=== PATIENT | male | born 2000 | race Caucasian/White ===

== ENCOUNTER 2024-02-11 21:26 | Inpatient (IN) ==
[2024-02-11 22:02] LABS: Appearance Urine Clear (Clear); Bacteria Urine Automated Negative (Negative); Bilirubin Urine Negative (Negative); Blood Urine 3+ (Negative); Cast Urine Automated 0 /lpf (0-5); Color Urine Yellow; Epithelial Cell Urine Auto 0-5 /lpf (0-5); Glucose Urine UA Negative (Negative); Ketones Urine Negative (Negative); Leukocyte Esterase Urine Negative (Negative); Nitrite Urine Negative (Negative); Protein Urine 1+ (Negative); RBC Urine Automated 0-4 /hpf (0-4); Specific Gravity Urine 1.006 (1.000-1.030); Urobilinogen Urine Negative (Negative)
[2024-02-11] MEDS: SODIUM CHLORIDE 0.9% 1,000 ML IV ONE (23:19)
[2024-02-11 23:41] LABS: Basophils # (auto) 0.07 K/uL (0.00-0.20); Basophils % (auto) 0.6 %; Eosinophils # (auto) 0.15 K/uL (0.00-0.50); Eosinophils % (auto) 1.4 %; Hematocrit (blood only) 48.6 % (42.0-52.0); Immature Granulocytes # (auto) 0.03 K/uL (0.01-0.20); Immature Granulocytes % (auto) 0.3 %; Lymphocytes % (auto) 25.4 %; Mean Corpuscular Hemoglobin 29.5 pg (25.0-34.0); Mean Corpuscular Volume 84.4 fL (80.0-100.0); Mean Platelet Volume 10.2 fL (9.4-12.4); Monocytes # (auto) 0.68 K/uL (0.11-0.59); Monocytes % (auto) 6.2 %; Neutrophils # (auto) 7.31 K/uL (1.40-6.50); Neutrophils % (auto) 66.1 %; Platelet Count 209 K/uL (130-400); RDW Coefficient of Variation 12.3 % (11.5-14.5); RDW Standard Deviation 37.5 fL (36.4-46.3); Red Blood Count 5.76 M/uL (4.70-6.10); White Blood Count 11.04 K/ul (4.8-10.8)
--- NOTE | 2024-02-12 | Emergency Department Note ---
Impression & Plan Exertional rhabdomyolysis, Acute dehydration ED Provider Note Name: RACQUEL TEMPLE Age: 23 Sex: Male Arrives Via: Walk-In Informant: Patient ED Provider: Amanuel Herrera MD Chief Complaint: Muscle aches Impression: As per impressions above Medical Decision Making: Pleasant 23-year-old male arrives for evaluation of generalized muscle aches across upper chest and shoulders and now having dark urine. Laboratory workup remarkable for an elevated CK of 71,000. Of note it took quite some time for this level to return given the need for dilution. Fortunately the rest of his labs are unremarkable. He is not in any renal failure. Urinalysis is + blood without RBCs. He was given 2 L normal saline bolus IV and given the severe degree of rhabdo he is in he requires hospitalization. No history of this happening previously. No significant other dehydrational issues going on. Denies any familial history of similar symptoms. Triage/Nursing Notes reviewed by Me Differential:Rhabdomyolysis, electrolyte imbalance, muscle strain, UTI, hematuria, anemia, bleeding dyscrasia amongst many other pathologies considered Vital Signs: reviewed and remarkable for no significant abnormalities Interventions: Normal Saline bolus 2 L IV Labs:ED labs Reviewed by me and remarkable for CK 71,000 Consults:Dr. Lux the [facility] hospitalist service Plan: Disposition:Hospitalization. Condition: Good History of Present Illness: 23-year-old male arrives for evaluation of muscle aches. Patient notes he was exercising pretty vigorously on Sunday with a friend. They have been doing upper body and arm workout. Notes some muscle soreness throughout the day yesterday though severe today. Associated with dark urine. Feeling bit dehydrated. Denies any fevers, chills, shortness of breath, back pain, abdominal pain, leg swelling, syncope, lightheadedness or other concerning signs or symptoms. Denies previous issues with working out. Takes no daily medications. Did take some Tylenol at home today with some mild improvement. Denies any urinary burning or frequency. Past Medical History:No significant past medical history Home Medications:No daily medications Allergies:Amoxicillin, aspirin, ibuprofen, penicillins Vitals:Blood Pressure: 137/93, Pulse 98, RR 18, T 36.8C, O2 99% on RA Physical Exam: GENERAL: Patient is mildly dehydrated appearing and in no acute distress. RESPIRATORY: No dyspnea. Clear to auscultation and equal bilaterally. CHEST: Mild ttp over bilateral pectoral muscles CARDIOVASCULAR: Regular rate and rhythm.No murmur appreciated. GASTROINTESTINAL: Abdomen soft, non-tender, no peritonitis. BACK: No midline tenderness, no CVA tenderness EXTREMITIES: Normal motion all extremities, no cyanosis, no edema. NEUROLOGIC: Alert and oriented. No focal neurologic deficits appreciated SKIN: No rash, no jaundice, no diaphoresis. PSYCH: Appropriate GCS: 15 ED Course: Times/Reassessments: Patient stable throughout. Agreeable to hospitalization. Breathing comfortably at time of hospitalization. Amanuel Herrera MD Past Med/Surg History Social History Smoking Status: Never smoker Preferred Language: [place] Feels Safe at Home: Yes Allergies Allergies Allergy/AdvReac Type Severity Reaction Status Date / Time amoxicillin Allergy Intermediate PT THINKS Verified 02/12/24 01:30 WAS A RASH ibuprofen Allergy Intermediate Swelling Verified 02/12/24 01:30 of the Eye aspirin Allergy Unknown STRONG Verified 02/12/24 01:30 FAMILY HX OF ALLERGY Penicillins Allergy Unknown HAPPENED Verified 02/12/24 01:30 A SMALL CHILD Home Meds Home Medications Medication Instructions Recorded Confirmed acetaminophen 500 mg tablet 1,000 mg PO DIRECTED PRN 02/12/24 02/12/24 (Tylenol Extra Strength) PAIN/FEVER Results & Data (ED) Vital Signs Vital Signs - 24 hr 02/11/24 21:43 02/12/24 01:40 02/12/24 01:41 Temperature 36.8 C Temperature Source Temporal Artery Scan Pulse Rate 98 H 82 Pulse Rate [Apical] 84 Respiratory Rate 18 18 Respiratory Effort / Characteristics Non-Labored Respiratory Depth Normal Respiratory Pattern Regular Blood Pressure 208/109 H Blood Pressure [Left Arm] 137/93 Blood Pressure Mean 142 Blood Pressure Mean [Left Arm] 107 Pulse Oximetry 99 Oxygen Delivery Method Room Air Sepsis Recent Fever Within 48 Hours No Sepsis New/Unexplained Change in Mental Status No Sepsis Action Taken by Nursing No Action Required Laboratory Data 02/11/24 23:22 02/11/24 23:22 Lab Results 02/11/24 02/11/24 Range/Units 21:50 23:22 WBC 11.04 H (4.8-10.8) K/ul RBC 5.76 (4.70-6.10) M/uL Hgb 17.0 (14.0-18.0) g/dl Hct 48.6 (42.0-52.0) % MCV 84.4 (80.0-100.0) fL MCH 29.5 (25.0-34.0) pg MCHC 35.0 (32.0-36.0) g/dL RDW Std Deviation 37.5 (36.4-46.3) fL RDW Coeff of Nuvia 12.3 (11.5-14.5) % Plt Count 209 (130-400) K/uL MPV 10.2 (9.4-12.4) fL Immature Gran % (Auto) 0.3 % Neut % (Auto) 66.1 % Lymph % (Auto) 25.4 % [place] % (Auto) 6.2 % Eos % (Auto) 1.4 % Baso % (Auto) 0.6 % Neut # (Auto) 7.31 H (1.40-6.50) K/uL Lymph # (Auto) 2.80 (1.20-3.40) K/uL [place] # (Auto) 0.68 H (0.11-0.59) K/uL Eos # (Auto) 0.15 (0.00-0.50) K/uL Baso # (Auto) 0.07 (0.00-0.20) K/uL Immature Gran # (Auto) 0.03 (0.01-0.20) K/uL Sodium 139 (136-145) mmol/L Potassium 3.7 (3.5-5.1) mmol/L Chloride 104 (98-107) mmol/L Carbon Dioxide 29 (21-32) mmol/L Anion Gap 6 (3-11) BUN 11 (6-23) mg/dl Creatinine 1.04 (0.6-1.4) mg/dl Est Cr Clr Drug Dosing 101.4 ml/min Est GFR ( Amer) 118.4 ml/min Est GFR (Non-Af Amer) 102.2 ml/min BUN/Creatinine Ratio 10.6 (10-20) Glucose 92 (70-99(Fasting)) mg/dl Calcium 9.8 (8.6-10.3) mg/dl Total Bilirubin 0.7 (0.2-1.0) mg/dl AST 761 H (13-39) U/L ALT 184 H (7-52) U/L Alkaline Phosphatase 59 (34-104) U/L Total Creatine Kinase 40248 H (30-223) U/L Total Protein 7.5 (6.0-8.3) gm/dl Albumin 4.8 (3.4-5.0) gm/dl Globulin 2.7 (2.5-4.0) gm/dl Albumin/Globulin Ratio 1.8 (0.9-2) Urine Color Yellow Urine Appearance Clear (Clear) Urine pH 6.0 (4.5-7.5) Ur Specific [place] 1.006 (1.000-1.030) Urine Protein 1+ H (Negative) Urine Glucose (UA) Negative (Negative) Urine Ketones Negative (Negative) Urine Blood 3+ H (Negative) Urine Nitrite Negative (Negative) Urine Bilirubin Negative (Negative) Urine Urobilinogen Negative (Negative) Ur Leukocyte Esterase Negative (Negative) Urine WBC (Auto) 1-5 (0-5) /hpf Urine RBC (Auto) 0-4 (0-4) /hpf U Hyaline Cast (Auto) 0 (0-5) /lpf U Epithel Cells (Auto) 0-5 (0-5) /lpf Urine Bacteria (Auto) Negative (Negative) Administered Medications Discontinued Medications Sodium Chloride (Nss) 1,000 mls @ 999 mls/hr IV .Q1H1M ONE Stop: 02/11/24 22:49 Last Infusion: 02/12/24 01:37 Dose: Infused Documented By: Admin: 02/11/24 23:19 Dose: 999 mls/hr Documented By: DIGNA Sodium Chloride (Nss) 1,000 mls @ 999 mls/hr IV .Q1H1M ONE Stop: 02/12/24 02:03 Last Infusion: 02/12/24 02:41 Dose: Infused Documented By: Admin: 02/12/24 01:36 Dose: 999 mls/hr Documented By: MARINO Discharge Plan Visit Data Chief Complaint: Dehydration Stated Complaint: DARK URINE, MUSCLE SORENESS ED Provider: Amanuel Herrera Discharge Problem: Exertional rhabdomyolysis, Acute dehydration Forms Stand Alone Forms: [facility] Prescriptions Prescriptions: No Action acetaminophen [Tylenol Extra Strength] 500 mg Tablet 1,000 mg PO DIRECTED PRN (Reason: PAIN/FEVER) Referrals Referrals: PCP,NO [Physician] -
[2024-02-12 00:01] LABS: BUN Creatinine Ratio 10.6 (10-20); Calcium 9.8 mg/dl (8.6-10.3); Creatinine Clr Calc Pharmacy 101.4 ml/min; Est GFR (African American) 118.4 ml/min; Est GFR (Non-African American) 102.2 ml/min; Potassium 3.7 mmol/L (3.5-5.1)
[2024-02-12 01:08] LABS: Albumin Globulin Ratio 1.8 (0.9-2); Albumin Level 4.8 gm/dl (3.4-5.0); Bilirubin,Total 0.7 mg/dl (0.2-1.0); Globulin 2.7 gm/dl (2.5-4.0); Total Protein 7.5 gm/dl (6.0-8.3)
[2024-02-12] MEDS: SODIUM CHLORIDE 0.9% 1,000 ML IV ONE (01:36)
[2024-02-12] MEDS ORDERED: ONDANSETRON INJ 2 MG/ML 2 ML VIAL IV PRN (03:46)
[2024-02-12] MEDS: SODIUM CHLORIDE 0.9% 1,000 ML IV STA (03:54)
--- NOTE | 2024-02-12 04:31 | History & Physical Report ---
Date of Service February 12, 2024 Assessment & Plan (1) Exertional rhabdomyolysis: (2) Abnormal LFTs: (3) Acute dehydration: (4) Myalgia: Plan Acute rhabdomyolysis due to exertion- CK 71,100 Primary symptoms are that of generalized muscle aches that began shortly after significantly more exertional activity than usual Follow renal function panel and CK every morning Status post 2 L normal saline fluid bolus Add and liter normal saline bolus, followed by NSS + KCl 20 mill equivalents at 150 mL/h x 1 additional liter Abnormal LFTs- AST 761, ALT 184 Likely associated with rhabdomyolysis syndrome Follow serially If not significantly improving, would add a hepatitis profile Admission and Anticipated Discharge Date Admission Date: February 12, 2024 History of Present Illness Chief Complaint: The patient presents to the emergency department with complaint of generalized muscle aching and soreness since a workout a few days ago, which she reports not having had them for quite a while previous to that Primary Care Provider: [facility] The patient is a 23-year-old male with no significant past medical history, who decided to work out for the first time in a long while with a friend of his couple days ago. He reports that his muscles have been very sore since that time, and noted yesterday that his urine became dark and had decreased urine volume. He denies taking any supplements of any kind, including creatin Allergies Allergy/AdvReac Type Severity Reaction Status Date / Time amoxicillin Allergy Intermediate PT THINKS Verified 02/12/24 01:30 WAS A RASH ibuprofen Allergy Intermediate Swelling Verified 02/12/24 01:30 of the Eye aspirin Allergy Unknown STRONG Verified 02/12/24 01:30 FAMILY HX OF ALLERGY Penicillins Allergy Unknown HAPPENED Verified 02/12/24 01:30 A SMALL CHILD Home Medications Medication Instructions Recorded Confirmed Type acetaminophen 500 mg tablet 1,000 mg PO DIRECTED PRN 02/12/24 02/12/24 History (Tylenol Extra Strength) PAIN/FEVER Past Med/Surg History Social History Smoking Status: Never smoker Hx Alcohol Use: Yes Alcohol type: beer Hx Substance Use: No Preferred Language: Citizen Of [place] Communication Ability: Effective 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 Beliefs That Will Affect Care: None Current Living Situation: Other Feels Safe at Home: Yes Safety Concerns: Feels Safe At This Time Assistive Devices: None Review of Systems Review of Systems: The patient denies chest pain, palpitations, shortness of breath, dyspnea on exertion, cough, lower extremity swelling, sore throat, fevers, chills, sweats, weight change, fatigue, nausea, vomiting, diarrhea , constipation, abdominal pain, pelvic pain, blood in stool, lightheadedness, dizziness, headache, memory loss, loss of consciousness, rash, abnormal bruising or bleeding, imbalance, focal or generalized weakness, numbness or tingling in arms or legs, back or neck pain, or night sweats. The review of systems is otherwise negative other than for that already noted above, and at least 10 systems have been reviewed. Physical Exam Physical Exam: The patient is awake, alert and oriented 3, well developed and well nourished, normocephalic and atraumatic, lying in bed and in no acute distress. HEENT--PERRL, EOMI, mucous membranes and oropharynx dry. Neck--supple. No JVD. No bruits. Thyroid normal, trachea midline, no adenopathy. Heart--normal S1 and S2. No murmurs, rubs or gallops. Lungs--clear bilaterally, no respiratory distress, no accessory muscle use. Abdomen--normal bowel sounds and soft. Nontender. Nondistended, no hernias or masses, no organomegaly. Extremities--no cyanosis or clubbing. No edema. There are good distal pulses b/l. Dermatologic--normal skin turgor, normal color, no abnormal lymph nodes, no rash. Neurologic--cranial nerves II through XII grossly intact. Rheumatologic--normal range of motion. Psychiatric--normal affect. Results & Data Results & Data Vital Signs (Past 12 Hours) Vital Signs Temp Pulse Pulse Resp BP BP Pulse Ox 02/12/24 03:57 147/83 H 02/12/24 01:41 82 02/12/24 01:40 84 18 137/93 02/11/24 21:43 36.8 C 98 H 18 208/109 H 99 O2 Del Method 02/12/24 03:57 02/12/24 01:41 02/12/24 01:40 02/11/24 21:43 Room Air Laboratory Results Laboratory Results WBC 11.04 K/ul (4.8-10.8) H 02/11/24 23:22 RBC 5.76 M/uL (4.70-6.10) 02/11/24 23:22 Hgb 17.0 g/dl (14.0-18.0) 02/11/24 23:22 Hct 48.6 % (42.0-52.0) 02/11/24 23:22 MCV 84.4 fL (80.0-100.0) 02/11/24 23:22 MCH 29.5 pg (25.0-34.0) 02/11/24 23:22 MCHC 35.0 g/dL (32.0-36.0) 02/11/24 23:22 RDW Std Deviation 37.5 fL (36.4-46.3) 02/11/24 23:22 RDW Coeff of Nuvia 12.3 % (11.5-14.5) 02/11/24 23:22 Plt Count 209 K/uL (130-400) 02/11/24 23:22 MPV 10.2 fL (9.4-12.4) 02/11/24 23:22 Immature Gran % (Auto) 0.3 % 02/11/24 23:22 Neut % (Auto) 66.1 % 02/11/24 23:22 Lymph % (Auto) 25.4 % 02/11/24 23:22 [place] % (Auto) 6.2 % 02/11/24 23:22 Eos % (Auto) 1.4 % 02/11/24 23:22 Baso % (Auto) 0.6 % 02/11/24 23:22 Neut # (Auto) 7.31 K/uL (1.40-6.50) H 02/11/24 23:22 Lymph # (Auto) 2.80 K/uL (1.20-3.40) 02/11/24 23:22 [place] # (Auto) 0.68 K/uL (0.11-0.59) H 02/11/24 23:22 Eos # (Auto) 0.15 K/uL (0.00-0.50) 02/11/24 23:22 Baso # (Auto) 0.07 K/uL (0.00-0.20) 02/11/24 23:22 Immature Gran # (Auto) 0.03 K/uL (0.01-0.20) 02/11/24 23:22 Sodium 139 mmol/L (136-145) 02/11/24 23:22 Potassium 3.7 mmol/L (3.5-5.1) 02/11/24 23:22 Chloride 104 mmol/L (98-107) 02/11/24 23:22 Carbon Dioxide 29 mmol/L (21-32) 02/11/24 23:22 Anion Gap 6 (3-11) 02/11/24 23:22 BUN 11 mg/dl (6-23) 02/11/24 23:22 Creatinine 1.04 mg/dl (0.6-1.4) 02/11/24 23:22 Est Cr Clr Drug Dosing 101.4 ml/min 02/11/24 23:22 Est GFR ( Amer) 118.4 ml/min 02/11/24 23:22 Est GFR (Non-Af Amer) 102.2 ml/min 02/11/24 23:22 BUN/Creatinine Ratio 10.6 (10-20) 02/11/24 23:22 Glucose 92 mg/dl (70-99(Fasting)) 02/11/24 23:22 Calcium 9.8 mg/dl (8.6-10.3) 02/11/24 23:22 Total Bilirubin 0.7 mg/dl (0.2-1.0) 02/11/24 23:22 AST 761 U/L (13-39) H 02/11/24 23:22 ALT 184 U/L (7-52) H 02/11/24 23:22 Alkaline Phosphatase 59 U/L (34-104) 02/11/24 23:22 Total Creatine Kinase 43218 U/L (30-223) H 02/11/24 23:22 Total Protein 7.5 gm/dl (6.0-8.3) 02/11/24 23:22 Albumin 4.8 gm/dl (3.4-5.0) 02/11/24 23:22 Globulin 2.7 gm/dl (2.5-4.0) 02/11/24 23:22 Albumin/Globulin Ratio 1.8 (0.9-2) 02/11/24 23:22 Urine Color Yellow 02/11/24 21:50 Urine Appearance Clear (Clear) 02/11/24 21:50 Urine pH 6.0 (4.5-7.5) 02/11/24 21:50 Ur Specific [place] 1.006 (1.000-1.030) 02/11/24 21:50 Urine Protein 1+ (Negative) H 02/11/24 21:50 Urine Glucose (UA) Negative (Negative) 02/11/24 21:50 Urine Ketones Negative (Negative) 02/11/24 21:50 Urine Blood 3+ (Negative) H 02/11/24 21:50 Urine Nitrite Negative (Negative) 02/11/24 21:50 Urine Bilirubin Negative (Negative) 02/11/24 21:50 Urine Urobilinogen Negative (Negative) 02/11/24 21:50 Ur Leukocyte Esterase Negative (Negative) 02/11/24 21:50 Urine WBC (Auto) 1-5 /hpf (0-5) 02/11/24 21:50 Urine RBC (Auto) 0-4 /hpf (0-4) 02/11/24 21:50 U Hyaline Cast (Auto) 0 /lpf (0-5) 02/11/24 21:50 U Epithel Cells (Auto) 0-5 /lpf (0-5) 02/11/24 21:50 Urine Bacteria (Auto) Negative (Negative) 02/11/24 21:50 Code Status & VTE Plan Code Status Full code VTE Prophylaxis Plan VTE Prophylaxis will be ordered: Yes PG Care Time/CCT Total # of Minutes Spent Total Time Spent with Patient: Total time spent is greater than 50% in coordination of care (as documented) at patient's floor/unit and/or counseling patient: Coding Level of Care Code 82282 INT INP/OBS CARE 3/75MIN Diagnoses Exertional rhabdomyolysis M62.82 Abnormal LFTs R79.89 Acute dehydration E86.0 Myalgia M79.10
--- NOTE | 2024-02-12 04:31 | Billing Data ---
Date of Service February 12, 2024 Coding Level of Care Code 00448 INT INP/OBS CARE
[2024-02-12] MEDS: NSS + 20MEQ KCL 20 MEQ/1,000 ML BAG IV SCH (05:04)
--- NOTE | 2024-02-12 07:44 | Hospitalist Progress Note ---
Date of Service February 12, 2024 Assessment & Plan (1) Myalgia: (2) Abnormal LFTs: (3) Acute dehydration: (4) Exertional rhabdomyolysis: Plan Ottoniel Del Cid is a 23-year-old male without significant past medical history who presented to the emergency department with complaint of generalized muscle aching and soreness since a workout a few days ago. He reports he has not worked out for quite a while previous to that. Acute rhabdomyolysis due to exertion -CK 71,100 on admission -Primary symptoms are that of generalized muscle aches that began shortly after significantly more exertional activity than usual -Follow renal function panel and CK every morning. Repeat CK this morning remains high at 74,750. -Received 2L NSS fluid bolus in ED. Will continue with IV fluids. Abnormal LFTs -AST 761, ALT 184 -Likely associated with rhabdomyolysis syndrome -Follow serially -If not significantly improving, would add a hepatitis profile Code Status: Full Code Admission and Anticipated Discharge Date Admission Date: February 12, 2024 Supervising Physician Co-Signing Physician Notes Attending Physician Supervision Note: I independently interviewed and examined the patient and verified the mcdonald history and physical, reviewed labs and image studies and agree with findings and care plan noted above. Subjective Patient seen and examined at bedside. He continues to have some arm/chest muscle soreness but is overall feeling well and notes that his urine is now a "normal color". He denies any chest pain, shortness of breath. Review of Systems Review of Systems: As per above Physical Exam Constitutional: WD/WN, vitals as above Eyes: + anicteric sclerae; no conjunctival abn ormality ENMT: Ears: no external ear abnormality Nose: no external nose abnormality moist mucous membranes Respiratory: normal respiratory effort, lungs clear to auscultation Cardiovascular: Rate/Rhythm: regular rate and regular rhythm Extremities: no edema Musculoskeletal: moves all limbs independently Skin: no rashes, warm and dry Neurologic: no focal motor deficits Psychiatric: A+Ox3, euthymic affect Results & Data Results & Data Vital Signs (Past 12 Hours) Vital Signs Temp Pulse Pulse Resp BP BP Pulse Ox 02/12/24 03:57 147/83 H 02/12/24 01:41 82 02/12/24 01:40 84 18 137/93 02/11/24 21:43 36.8 C 98 H 18 208/109 H 99 O2 Del Method 02/12/24 03:57 02/12/24 01:41 02/12/24 01:40 02/11/24 21:43 Room Air Resident Activity Tracking Resident Involvement: Resident Care Provided Care Provided: Adult Hospital Medicine
[2024-02-12 08:11] LABS: Basophils # (auto) 0.05 K/uL (0.00-0.20); Basophils % (auto) 0.5 %; Eosinophils # (auto) 0.13 K/uL (0.00-0.50); Eosinophils % (auto) 1.4 %; Immature Granulocytes # (auto) 0.03 K/uL (0.01-0.20); Immature Granulocytes % (auto) 0.3 %; Lymphocytes # (auto) 2.79 K/uL (1.20-3.40); Lymphocytes % (auto) 30.7 %; Mean Corpuscular Hemoglobin 28.7 pg (25.0-34.0); Mean Corpuscular Hgb Conc 33.3 g/dL (32.0-36.0); Mean Corpuscular Volume 86.2 fL (80.0-100.0); Mean Platelet Volume 10.4 fL (9.4-12.4); Monocytes # (auto) 0.79 K/uL (0.11-0.59); Monocytes % (auto) 8.7 %; Neutrophils # (auto) 5.31 K/uL (1.40-6.50); Neutrophils % (auto) 58.4 %; Platelet Count 167 K/uL (130-400); RDW Coefficient of Variation 12.5 % (11.5-14.5); RDW Standard Deviation 39.1 fL (36.4-46.3); Red Blood Count 5.22 M/uL (4.70-6.10)
[2024-02-12 09:22] LABS: Albumin Globulin Ratio 1.9 (0.9-2); Albumin Level 3.9 gm/dl (3.4-5.0); BUN Creatinine Ratio 8.2 (10-20); Bilirubin,Total 0.9 mg/dl (0.2-1.0); Calcium 8.8 mg/dl (8.6-10.3); Creatinine Clr Calc Pharmacy 139.9 ml/min; Est GFR (African American) 144.4 ml/min; Est GFR (Non-African American) 124.6 ml/min; Globulin 2.1 gm/dl (2.5-4.0); Magnesium 1.8 mg/dl (1.7-2.4); Potassium 3.9 mmol/L (3.5-5.1)
[2024-02-12] MEDS: SODIUM CHLORIDE 0.9% 1,000 ML IV SCH (19:12)
[2024-02-13 07:01] LABS: Basophils # (auto) 0.06 K/uL (0.00-0.20); Basophils % (auto) 0.7 %; Eosinophils # (auto) 0.22 K/uL (0.00-0.50); Eosinophils % (auto) 2.7 %; Hematocrit (blood only) 43.4 % (42.0-52.0); Hemoglobin 15.1 g/dl (14.0-18.0); Immature Granulocytes # (auto) 0.02 K/uL (0.01-0.20); Immature Granulocytes % (auto) 0.2 %; Lymphocytes % (auto) 36.8 %; Mean Corpuscular Hemoglobin 29.7 pg (25.0-34.0); Mean Corpuscular Hgb Conc 34.8 g/dL (32.0-36.0); Mean Corpuscular Volume 85.4 fL (80.0-100.0); Mean Platelet Volume 10.3 fL (9.4-12.4); Monocytes % (auto) 9.8 %; Neutrophils # (auto) 4.06 K/uL (1.40-6.50); Neutrophils % (auto) 49.8 %; Platelet Count 163 K/uL (130-400); RDW Coefficient of Variation 12.6 % (11.5-14.5); RDW Standard Deviation 39.1 fL (36.4-46.3); Red Blood Count 5.08 M/uL (4.70-6.10); White Blood Count 8.16 K/ul (4.8-10.8)
[2024-02-13 07:28] LABS: BUN Creatinine Ratio 9.1 (10-20); Calcium 9.3 mg/dl (8.6-10.3); Creatinine Clr Calc Pharmacy 120.1 ml/min; Est GFR (African American) 125.7 ml/min; Est GFR (Non-African American) 108.4 ml/min; Potassium 3.8 mmol/L (3.5-5.1)
[2024-02-13 09:11] LABS: Albumin Globulin Ratio 1.7 (0.9-2); Globulin 2.3 gm/dl (2.5-4.0); Magnesium 1.9 mg/dl (1.7-2.4); Total Protein 6.3 gm/dl (6.0-8.3)
--- NOTE | 2024-02-13 10:29 | Hospitalist Progress Note ---
Date of Service February 13, 2024 Assessment & Plan (1) Exertional rhabdomyolysis: Plan: - CK trending downwards (66,241) from 71,100 on admission - continue NSS 150mL/hr - discussed with patient post-discharge plans, focusing on ability to resume walking to campus and activities that involve exertion (2) Abnormal LFTs: Plan: - AST and ALT trending upwards (AST 794, ALT 217) - elevated AST/ALT are associated with rhabdomyolysis and tissue injury - continue trending - consider hepatitis panel if not declining with CK decrease Admission and Anticipated Discharge Date Admission Date: February 12, 2024 Supervising Physician Co-Signing Physician Notes Attending Physician Supervision Note: I independently interviewed and examined the patient and verified the mcdonald history and physical, reviewed labs and image studies and agree with findings a nd care plan noted above. pain in arms much better. urinating well. comfortable in bed. no resp distress noted. Exertional rhabdomyolysis - CPK improving. LFT worse - still likely from rhabdo. -continue IVF hydration and monitor renal function. Subjective Hospital day 3. Patient had no overnight events and is resting comfortably in bed. He mentions mild muscle pain, rated 3/10, but is overall feeling much better. Review of Systems Review of Systems: As per above Musculoskeletal: mild bilateral arm and upper chest pain Physical Exam Constitutional: WD/WN, vitals as above Eyes: + anicteric sclerae; no conjunctival abn ormality ENMT: Ears: no external ear abnormality Nose: no external nose abnormality Respiratory: normal respiratory effort, lungs clear to auscultation Cardiovascular: Rate/Rhythm: regular rate and regular rhythm Extremities: no edema Skin: no rashes, warm and dry Neurologic: no focal motor deficits Psychiatric: A+Ox3, euthymic affect Results & Data Results & Data Vital Signs (Past 12 Hours) Vital Signs Temp Pulse Resp BP Pulse Ox O2 Del Method 02/13/24 07:01 36.6 C 66 16 139/82 98 Room Air
[2024-02-14 06:52] LABS: Basophils # (auto) 0.05 K/uL (0.00-0.20); Basophils % (auto) 0.6 %; Eosinophils # (auto) 0.27 K/uL (0.00-0.50); Eosinophils % (auto) 3.2 %; Hematocrit (blood only) 43.3 % (42.0-52.0); Hemoglobin 15.1 g/dl (14.0-18.0); Immature Granulocytes # (auto) 0.02 K/uL (0.01-0.20); Immature Granulocytes % (auto) 0.2 %; Lymphocytes # (auto) 2.43 K/uL (1.20-3.40); Lymphocytes % (auto) 29.1 %; Mean Corpuscular Hemoglobin 29.7 pg (25.0-34.0); Mean Corpuscular Hgb Conc 34.9 g/dL (32.0-36.0); Mean Corpuscular Volume 85.1 fL (80.0-100.0); Mean Platelet Volume 10.2 fL (9.4-12.4); Monocytes # (auto) 0.77 K/uL (0.11-0.59); Monocytes % (auto) 9.2 %; Neutrophils # (auto) 4.82 K/uL (1.40-6.50); Neutrophils % (auto) 57.7 %; Platelet Count 157 K/uL (130-400); RDW Coefficient of Variation 12.5 % (11.5-14.5); RDW Standard Deviation 38.5 fL (36.4-46.3); Red Blood Count 5.09 M/uL (4.70-6.10); White Blood Count 8.36 K/ul (4.8-10.8)
[2024-02-14 07:21] LABS: Creatinine Clr Calc Pharmacy 129.3 ml/min; Est GFR (African American) 137.3 ml/min; Est GFR (Non-African American) 118.5 ml/min
[2024-02-14 08:01] LABS: Albumin Globulin Ratio 1.8 (0.9-2); Albumin Level 3.9 gm/dl (3.4-5.0); Bilirubin,Total 0.8 mg/dl (0.2-1.0); Globulin 2.2 gm/dl (2.5-4.0); Total Protein 6.1 gm/dl (6.0-8.3)
--- NOTE | 2024-02-14 11:34 | Hospitalist Progress Note ---
Date of Service February 14, 2024 Assessment & Plan (1) Exertional rhabdomyolysis: Plan: - CK spiked late yesterday to 93K but has decreased back to 57K on repeat labs this morning. - patient revealed he walked 2 laps around the floor, advised to discontinue any exertional activites for the time being. - renal function remains stable - continue NSS 150mL/hr - continue trending CK (2) Abnormal LFTs: Plan: - AST and ALT continuing trending upwards (AST 822, ALT 254) - elevated AST/ALT are associated with rhabdomyolysis and tissue injury - continue trending - consider hepatitis panel if not declining with CK decrease Admission and Anticipated Discharge Date Admission Date: February 12, 2024 Supervising Physician Co-Signing Physician Notes Attending Physician Supervision Note: I independently interviewed and examined the patient and verified the mcdonald history and physical, reviewed labs and image studies and agree with findings and care plan noted above. pain in arms much better. urinating well. comfortable in bed. no resp distress noted. Exertional rhabdomyolysis - CPK improving - 57k. Transaminases higher today - still likely from rhabdo. -continue IVF hydration and monitor renal function. Subjective Hospital day 4. Patient had no overnight events and is resting comfortably in bed. He mentions pain is the same as yesterday (01/19) but he is able to move his arms more. He describes his urine as being back to normal. He walked 2 laps around the hospital floor. Review of Systems Review of Systems: As per above Musculoskeletal: mild bilateral arm and upper chest pain Physical Exam Constitutional: WD/WN, vitals as above Eyes: + anicteric sclerae; no conjunctival abn ormality ENMT: Ears: no external ear abnormality Nose: no external nose abnormality Respiratory: normal respiratory effort, lungs clear to auscultation Cardiovascular: Rate/Rhythm: regular rate and regular rhythm Extremities: no edema Skin: no rashes, warm and dry Neurologic: no focal motor deficits Psychiatric: A+Ox3, euthymic affect Results & Data Results & Data Vital Signs (Past 12 Hours) Vital Signs Temp Pulse Resp BP Pulse Ox O2 Del Method 02/14/24 07:20 36.6 C 74 17 150/82 H 98 Room Air
[2024-02-15 07:39] LABS: Basophils # (auto) 0.04 K/uL (0.00-0.20); Basophils % (auto) 0.5 %; Eosinophils % (auto) 3.7 %; Hematocrit (blood only) 44.3 % (42.0-52.0); Hemoglobin 14.8 g/dl (14.0-18.0); Immature Granulocytes # (auto) 0.02 K/uL (0.01-0.20); Immature Granulocytes % (auto) 0.2 %; Lymphocytes # (auto) 2.15 K/uL (1.20-3.40); Lymphocytes % (auto) 26.3 %; Mean Corpuscular Hemoglobin 28.8 pg (25.0-34.0); Mean Corpuscular Hgb Conc 33.4 g/dL (32.0-36.0); Mean Corpuscular Volume 86.2 fL (80.0-100.0); Monocytes # (auto) 0.67 K/uL (0.11-0.59); Monocytes % (auto) 8.2 %; Neutrophils % (auto) 61.1 %; Platelet Count 160 K/uL (130-400); RDW Coefficient of Variation 12.4 % (11.5-14.5); RDW Standard Deviation 38.8 fL (36.4-46.3); Red Blood Count 5.14 M/uL (4.70-6.10); White Blood Count 8.18 K/ul (4.8-10.8)
[2024-02-15 07:58] LABS: Albumin Globulin Ratio 1.7 (0.9-2); Albumin Level 3.8 gm/dl (3.4-5.0); BUN Creatinine Ratio 11.7 (10-20); Bilirubin,Total 0.8 mg/dl (0.2-1.0); Calcium 9.1 mg/dl (8.6-10.3); Creatinine Clr Calc Pharmacy 126.5 ml/min; Est GFR (African American) 133.8 ml/min; Est GFR (Non-African American) 115.4 ml/min; Globulin 2.2 gm/dl (2.5-4.0); Magnesium 1.9 mg/dl (1.7-2.4); Potassium 3.8 mmol/L (3.5-5.1)
--- NOTE | 2024-02-15 10:07 | Hospitalist Progress Note ---
Date of Service February 15, 2024 Assessment & Plan (1) Myalgia: (2) Abnormal LFTs: (3) Acute dehydration: (4) Exertional rhabdomyolysis: Plan Ottoniel Del Cid is a 23-year-old male without significant past medical history who presented to the emergency department with complaint of generalized muscle aching and soreness since a workout a few days ago. He reports he has not worked out for quite a while previous to that. Acute rhabdomyolysis due to exertion -CK 71,100 on admission -Primary symptoms are that of generalized muscle aches that began shortly after significantly more exertional activity than usual -Follow renal function panel and CK every morning. Repeat CK this morning lower at 27k. -Received 2L NSS fluid bolus in ED. Will continue with IV fluids. Abnormal LFTs -AST 761, ALT 184 on admission -Likely associated with rhabdomyolysis syndrome -Follow serially, starting to improve with AST 621, ALT 244 this AM. -If not significantly improving, would add a hepatitis profile Code Status: Full Code Admission and Anticipated Discharge Date Admission Date: February 12, 2024 Supervising Physician Co-Signing Physician Notes Attending Physician Supervision Note: I independently interviewed and examined the patient and verified the mcdonald history and physical, reviewed labs and image studies and agree with findings and care plan noted above. Subjective Patient seen at the bedside this morning feeling well. No overnight events. Review of Systems Review of Systems: As per above Physical Exam Constitutional: WD/WN, vitals as above Respiratory: normal respiratory effort, lungs clear to auscultation Chest (Breasts): normal inspection/palpation of breasts Skin: no rashes, warm and dry Psychiatric: A+Ox3, euthymic affect Results & Data Results & Data Vital Signs (Past 12 Hours) Vital Signs Temp Pulse Resp BP Pulse Ox O2 Del Method 02/15/24 07:14 36.5 C 74 16 139/76 97 Room Air Resident Activity Tracking Resident Involvement: Resident Care Provided Care Provided: Adult Hospital Medicine
[2024-02-16 07:49] LABS: Basophils # (auto) 0.06 K/uL (0.00-0.20); Basophils % (auto) 0.9 %; Eosinophils # (auto) 0.28 K/uL (0.00-0.50); Eosinophils % (auto) 4.1 %; Hematocrit (blood only) 44.5 % (42.0-52.0); Hemoglobin 14.8 g/dl (14.0-18.0); Immature Granulocytes # (auto) 0.03 K/uL (0.01-0.20); Immature Granulocytes % (auto) 0.4 %; Lymphocytes # (auto) 1.98 K/uL (1.20-3.40); Lymphocytes % (auto) 29.2 %; Mean Corpuscular Hemoglobin 28.9 pg (25.0-34.0); Mean Corpuscular Hgb Conc 33.3 g/dL (32.0-36.0); Mean Corpuscular Volume 86.9 fL (80.0-100.0); Monocytes # (auto) 0.47 K/uL (0.11-0.59); Monocytes % (auto) 6.9 %; Neutrophils # (auto) 3.96 K/uL (1.40-6.50); Neutrophils % (auto) 58.5 %; Platelet Count 154 K/uL (130-400); RDW Coefficient of Variation 12.4 % (11.5-14.5); RDW Standard Deviation 39.2 fL (36.4-46.3); Red Blood Count 5.12 M/uL (4.70-6.10); White Blood Count 6.78 K/ul (4.8-10.8)
[2024-02-16 08:01] LABS: BUN Creatinine Ratio 12.9 (10-20); Calcium 9.2 mg/dl (8.6-10.3); Creatinine Clr Calc Pharmacy 127.9 ml/min; Est GFR (African American) 135.5 ml/min; Est GFR (Non-African American) 116.9 ml/min; Potassium 3.8 mmol/L (3.5-5.1)
--- NOTE | 2024-02-16 08:03 | Hospitalist Progress Note ---
Date of Service February 16, 2024 Assessment & Plan (1) Myalgia: Plan: Ottoniel Del Cid is a 23-year-old male without significant past medical history who presented to the emergency department with complaint of generalized muscle aching and soreness since a workout a few days ago. Now stable, improving with administration of fluids. Acute rhabdomyolysis due to exertion -Primary symptoms of general muscle aches that began shortly after significantly more exertional activity than baseline. -CK 71,100 on admission. 13,015 today. -Follow renal function panel and CK every morning. -Received 2L NSS fluid bolus in ED. Will continue with IV fluids. Abnormal LFTs -AST 761, ALT 184 on admission -Likely associated with rhabdomyolysis syndrome -Follow serially, starting to improve with AST 621, ALT 244 this AM. -If not significantly improving, would add a hepatitis profile Code Status: Full Code (2) Abnormal LFTs: (3) Acute dehydration: (4) Exertional rhabdomyolysis: Admission and Anticipated Discharge Date Admission Date: February 12, 2024 Subjective Patient awake and seated upright at bedside on arrival. Has no subjective complaints. Review of Systems Review of Systems: All systems reviewed & are unremarkable except as noted in HPI & below Physical Exam Physical Exam: General: No acute distress HEENT: PERRLA. Normal conjunctiva, anicteric sclera. Oropharynx normal. Respiratory: Normal respiratory effort, CTABL. Cardiovascular: RRR without murmurs, gallops, or rubs. No pedal edema. GI: Soft abdomen with normal bowel sounds heard on auscultation. Nontender x4 quadrants Neuro: Alert and oriented x3. Results & Data Results & Data Vital Signs (Past 12 Hours) Vital Signs Temp Pulse Resp BP Pulse Ox O2 Del Method 02/16/24 07:27 36.5 C 74 16 135/78 97 Room Air 02/15/24 20:04 36.7 C 84 18 139/77 99 Room Air Resident Activity Tracking Resident Involvement: Resident Care Provided Care Provided: Adult Hospital Medicine
[2024-02-16 08:39] LABS: Albumin Globulin Ratio 1.7 (0.9-2); Albumin Level 3.8 gm/dl (3.4-5.0); Bilirubin,Total 0.8 mg/dl (0.2-1.0); Globulin 2.2 gm/dl (2.5-4.0); Magnesium 1.9 mg/dl (1.7-2.4)
--- NOTE | 2024-02-16 15:39 | Discharge Summary ---
Date of Service February 16, 2024 Admission HPI Per Admitting Provider The patient is a 23-year-old male with no significant past medical history, who decided to work out for the first time in a long while with a friend of his couple days ago. He reports that his muscles have been very sore since that time, and noted yesterday that his urine became dark and had decreased urine volume. He denies taking any supplements of any kind, including creatin Admission Exam Per Admitting Provider The patient is awake, alert and oriented 3, well developed and well nourished, normocephalic and atraumatic, lying in bed and in no acute distress. HEENT--PERRL, EOMI, mucous membranes and oropharynx dry. Neck--supple. No JVD. No bruits. Thyroid normal, trachea midline, no adenopathy. Heart--normal S1 and S2. No murmurs, rubs or gallops. Lungs--clear bilaterally, no respiratory distress, no accessory muscle use. Abdomen--normal bowel sounds and soft. Nontender. Nondistended, no hernias or masses, no organomegaly. Extremities--no cyanosis or clubbing. No edema. There are good distal pulses b/l. Dermatologic--normal skin turgor, normal color, no abnormal lymph nodes, no rash. Neurologic--cranial nerves II through XII grossly intact. Rheumatologic--normal range of motion. Psychiatric--normal affect. Principal Diagnosis Please see attending attestation. Discharge Exam General: No acute distress HEENT: PERRLA. Normal conjunctiva, anicteric sclera. Oropharynx normal. Respiratory: Normal respiratory effort, CTABL. Cardiovascular: RRR without murmurs, gallops, or rubs. No pedal edema. GI: Soft abdomen with normal bowel sounds heard on auscultation. Nontender x4 quadrants Neuro: Alert and oriented x3. Discharge Data Allergies Allergy/AdvReac Type Severity Reaction Status Date / Time amoxicillin Allergy Intermediate PT THINKS Verified 02/12/24 01:30 WAS A RASH ibuprofen Allergy Intermediate Swelling Verified 02/12/24 01:30 of the Eye aspirin Allergy Unknown STRONG Verified 02/12/24 01:30 FAMILY HX OF ALLERGY Penicillins Allergy Unknown HAPPENED Verified 02/12/24 01:30 A SMALL CHILD Consultations 02/12/24 01:45 ED Decision to Admit Stat Hospital Course (1) Myalgia: 23 M without significant past medical history who presented to the emergency department with generalized muscle pain and soreness following workup. Acute rhabdomyolysis due to exertion -Primary symptoms of general muscle aches that began shortly after significantly more exertional activity than baseline. -CK 71,100 on admission. Received IV hydration. CK 13,015 at discharge. Abnormal LFTs -AST 761, ALT 184 on admission. AST 376 ALT 207 at discharge. -Likely associated with rhabdomyolysis syndrome -If not significantly improving on outpatient follow-up, would consider adding a hepatitis profile (2) Abnormal LFTs: (3) Acute dehydration: (4) Exertional rhabdomyolysis: Total Time Total Time Spent Total Time Spent (In Minutes): Please see attending attestation. Discharge Plan Discharge Items Patient Disposition: Home - Self-Care Reason For Visit: RHABDOMYOLYSIS, ABNL LFT's Discharge Diagnosis: Exertional rhabdomyolysis Activity: Per Instructions section Non-emergency contact: Primary Care Provider Call non-emergency contact if: you have any medication questions and your symptoms worsen Follow-up/Referrals: [facility] [Primary Care Provider] - Diet: Regular Ambulatory Orders: Creatine Kinase (Timed) Timeframe: 1 Week Location: Determined by Patient Ordered By: Gabriella Coy Attending Provider Instructions: Dear Ottoniel, You came to the hospital with myalgia, or significant muscle pain. Your evaluated and then admitted for management of rhabdomyolysis, or acute skeletal muscular tissue degradation brought on by exertion. We treated you with IV fluids, to help relieve the strain on your kidneys, as it filtered the tissue debris from your blood. We also observed you clinically until you improved. Now that your labs are showing sustained signs of improvement, we feel that you are now safe to be safely discharged home. 1. It is incredibly important, given the nature of your injury, that you refrain from physical activity until you have been evaluated by your primary care physician. Until you have been cleared for physical activity by your primary care physician, you should take care not to overly exert yourself. 2. It is important that you make a follow-up appointment with your primary care physician. You should make an appointment to be seen within 10 days of your discharge. If you are unable to do so, contact [facility] at [phone] and ask the rotary envelope machine operator to be transferred to the hospital automotive worker foreman. The hospital automotive worker foreman will sure that you are scheduled with one of our outpatient providers. Your PCP should also recheck your liver enzymes, to ensure that they are trending downward towards the normal range. 3. It is important that you put get your blood drawn a week from today, to ensure that your creatinine kinase, the serum protein measurement that correlates with muscle breakdown, continues to decrease towards the normal range. We have ordered a repeat test to be done in 1 week. A copy of this order will be provided to you at discharge. You should take that order to any clinical lab, or you can return to the hospital to have the test completed. 4. After you have been discharged, if you begin to experience muscle aches, sudden unexplained fatigue, or blood-tinged urine, contact your primary care provider immediately. If you are unable to do so, immediately head to the emergency room for evaluation. It has been a pleasure to care for you here at [facility]. If you have any questions or concerns about your care, you may reach us at [phone]. Pending Studies at Discharge: No Stand-Alone Forms: My [facility], Smoking Cessation Medications and DC Order Prescriptions: Continued acetaminophen [Tylenol Extra Strength] 500 mg Tablet 1,000 mg PO DIRECTED PRN (Reason: PAIN/FEVER) Discharge Orders: Discharge Order (Routine); Ordered 02/16/24 Ordered By: Gabriella Ledesma Admission Data Admit Date/Time: 02/12/24 02:33 Attending Provider: Teena Mcelroy Admit Provider: Monroe Lux Primary Care Provider: [facility] Other Providers: Monroe Lux Other Interventions: Discharge Summary Assessment (RN) Last Done: 02/16/24 16:03 Supervising Physician Co-Signing Physician Notes Attending Physician Supervision Note: I independently interviewed and examined the patient and verified the mcdonald history and physical, reviewed labs and image studies and agree with findings and care plan noted above. Resident Activity Tracking Resident Involvement: Resident Care Provided Care Provided: Adult Hospital Medicine
== END 2024-02-16 16:55 | disposition home or self-care (01) | DRG 558 ==
LOC: ED 21:26 → 3W 02-12 02:33 → SUATTDRO 02-12 02:33 → 3W 02-12 03:32